=== PATIENT | female | born 1960 | race Two or more races ===

== ENCOUNTER → 2017-02-03 | Outpatient (CLI) | payer OTHER ==
--- NOTE | 2017-02-03 12:13 | KCIC ---
PROCEDURE MR of the right shoulder HISTORY Right shoulder pain. TECHNIQUE Injury 2 years ago. Pain. Routine multiplanar sequences are obtained. COMPARISON FINDINGS Acromioclavicular joint is mildly degenerative. Mild undersurface hypertrophy of the outer clavicle indents the supraspinatus. There is mild signal and thickening of the rotator cuff compatible with tendinosis. Some focal low signal tissue identified at the supraspinatus tendon compatible with calcium hydroxyapatite deposition. No evidence of a rotator cuff tear. Trace subdeltoid bursal fluid. No evidence of labral tear or paralabral cyst. No acute articular cartilage defect. Biceps tendon is intact. No bone lesion or acute fracture. No acute soft tissue injury. IMPRESSION 1. 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 2. Rotator cuff tendinosis without evidence of tear. 3. Acromioclavicular joint osteoarthritis with undersurface mass-effect. Electronically signed by: Dirk Franco MD (Feb 03, 2017 12:12:11)
--- NOTE | 2017-02-03 13:02 | KCIC ---
PROCEDURE MR of the right hip HISTORY Right hip pain. Fell off a ladder 2 years ago. TECHNIQUE Routine multiplanar sequences are obtained. COMPARISON FINDINGS No bone lesion or acute fracture. No acute bone marrow edema. No femoral head osteonecrosis. No significant joint effusion. No evidence of a labral tear. No paralabral cyst. Gluteus minimus demonstrates mild tendinosis at the greater trochanteric attachment. Right gluteus medius tendon is intact. Hamstring and iliopsoas tendons are intact. Rectus femoris and sartorius tendon attachments are intact. Muscle tissue unremarkable. No abnormal soft tissue fluid collection. Diagnostically limited large [id number] coronal survey sequence demonstrates no acute findings at the contralateral hip or elsewhere. IMPRESSION 1. Mild right gluteus minimus tendinosis. 2. No other significant abnormality. Electronically signed by: Dirk Franco MD (Feb 03, 2017 13:00:59)
== END | disposition home or self-care (01) ==
LOC: KCIC MRI 10:43
PROVIDERS: ATTEND Nurse Practitioner
DX: M19.011 Primary osteoarthritis, right shoulder (principal); M11.051 Hydroxyapatite deposition disease, right hip; W11.XXXA Fall on and from ladder, initial encounter
CPT/HCPCS: 73221; 73721